=== PATIENT | male | born 2000 | race Caucasian/White ===

== ENCOUNTER 2025-02-15 21:31 | Emergency (ER) | payer OTHER, SELFPAY ==
[2025-02-15 21:37] VITALS: BP 126/80; PULSE 57; TEMP 36.9; O2SAT 98; BMI 23.5
--- OUTSIDE RECORDS SUMMARY | 2025-02-15 21:41 | XMS_ITS | Encounter Summary ---
Author Organization [facility] Sys [facility] Address [id number] [address] [place] [address] Care Team Providers Care Market Risk Manager Name Role Phone David Gomes MD Primary Care Provider [phone] Reason for Visit * Reason Onset Date Comments Video appt request 01/07/2020 Encounter Details Date Type Department Care Team (Late st Contact Info) Description 01/07/[address] [facility] Neurology [address] [place] [address] Rene Ley Video appt request Social History Tobacco Use Types Packs/Day Years Used Date Smoking Tobacco: Never Smokeless Tobacco: Never Alcohol Use Standard Drinks/Week Comments No 0 (1 standard drink = 0.6 oz pur e alcohol) Childcare Answer Date Recorded Childcare Unknown 11/01/2018 Employment Answer Date Recorded Employment Unknown 11/01/2018 Sex and Gender Information Value Date Recorded Sex Assigned at Male 01/07/2020 6:47 PM EDT Legal Sex Male 11:57 AM EDT Gender Identity Male 01/07/2020 6:47 PM EDT Sexual Orientation Straight 01/07/2020 6: 47 PM EDT documented as of this encounter Miscellaneous Notes * Telephone Encounter - Rene Ley - 01/07/2020 2:56 PM EDT Patient requesting 01/09 follow up w/ LIBRA Moreira be switched to video appt. Patient is not comfortable coming into office. My chart active. Please advise appt may be switched to video. * Telephone Encounter - Tiki Carroll RN - 01/07/2020 2:56 PM EDT Okay to switch. Tiki Carroll RN 01/07/20 1519 * Telephone Encounter - Rene Ley - 01/07/2020 2:56 PM EDT Appt switched to video. Patient advised he will be contacted for set up. documented in this encounter Plan of Treatment Upcoming Encounters Date Type Department Care Team (Late st Contact Info) Description 02/28/2025 9:00 AM EDT Office Visit [facility] Neurology, A Department of [address] [place] [phone] Diego Peraza MD [address] [place] [address] [address] [place] [phone] documented as of this encounter Visit Diagnoses Not on filedocumented in this encounter Care Teams Market Risk Manager Relationship Specialty Start Date End Date David Gomes MD [address] [place] [address], [address] [place] [address] PCP - General Pediatrics 04/07/21 documented as of this encounter
--- OUTSIDE RECORDS SUMMARY | 2025-02-15 21:41 | XMS_ITS | Encounter Summary ---
[id number] [address] [place] [address] Care Team Providers Care Medical Photographer Name Role Phone David Gomes MD Primary Care Provider [phone] Reason for Visit * Reason Comments Med Refill Encounter Details Date Type Department Care Team (Late st Contact Info) Description 04/10/2018 Refill [facility] [address] [facility] [address] [place] [phone] Alhaji Yang MD [address] [place] [address], [facility] [address] [place], [place] [id number] Social History Tobacco Use Types Packs/Day Years Used Date Smoking Tobacco: Never Smokeless Tobacco: Never Alcohol Use Standard Drinks/Week Comments No 0 (1 standard drink = 0.6 oz pur e alcohol) Sex and Gender Information Value Date Recorded Sex Assigned at Male 01/07/2020 6:47 PM EDT Legal Sex Male 11:57 AM EDT Gender Identity Male 01/07/2020 6:47 PM EDT Sexual Orientation Straight 01/07/2020 6: 47 PM EDT documented as of this encounter Plan of Treatment Upcoming Encounters Date Type Department Care Team (Late st Contact Info) Description 02/28/2025 9:00 AM EDT Office Visit [facility], A Department of [address] [place] [address] Diego Peraza MD [address] [place] [address], [facility] [address] [place] [address] documented as of this encounter Visit Diagnoses Not on filedocumented in this encounter Care Teams Medical Photographer Relationship Specialty Start Date End Date David Gomes MD [address] [place] [address], [address] [place] [address] PCP - General Pediatrics 04/07/21 documented as of this encounter
--- OUTSIDE RECORDS SUMMARY | 2025-02-15 21:41 | XMS_ITS | Clinical Summary ---
Author Organization [facility] Address [facility] [id number] [address] [place] [address] Care Team Providers Care Lapel Stitcher Name Role Phone David Gomes MD Primary Care Provider [phone] Allergies Active Allergy Reactions Criticality Noted Date Comments Amoxicillin 07/08/2017 Medications levETIRAcetam (KEPPRA) 500 mg tabletIndication s:Seizures, generalized convulsive (CMS-HCC) TAKE 4 TABLET BY MOUTH TWICE DAILY 240 tablet 5 10/01/2024 Active topiramate (TOPAMAX) 100 mg tabletIndication s:Seizures, generalized convulsive (CMS-HCC) Take 1 tablet (100 mg total) by mouth in the morning and 1 tablet (100 mg total) before bedtime. 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 Encounters Date Type Department Care Team Description 01/03/[address] [facility] Neurology, A Department of [facility] [address] [place] [address] [place] [address] Jennifer Jimenez BMV Physician Statement Form 11/21/2024 10:30 AM EDT Office Visit [facility]/Pediatrics [address] [phone] David Gomes MD Tick bite, unspecified site, initial encounter (Primary Dx) 11/20/2024 Travel from Last 3 Months Immunizations Immunization Administration Dates Next Due COVID-19 Vaccine, vector-nr, rS-Ad26, PF, 0.5mL 07/30/2020 Influenza, Injectable, Mdck, Preservative Free, Quad 05/05/2019 Influenza, Injectable, quadrivalent (PF) 021 Meningococcal Conjugate 02/04/2018 Family History Medical History Relation Name Comments No Known Problems Father Bleeding Disorder Maternal cousin Magdalene vWD Menorrhagia Mother Menorrhagia Sister 1 Dionicio Menorrhagia Sister 2 Jelna Relation Name Status Comments Father Alive Maternal cousin Magdalene Alive Mother Alive Sister 1 Dionicio Alive Sister 2 Jelna Alive Social History Tobacco Use Types Packs/Day Years Used Date Smoking Tobacco: Never Smokeless Tobacco: Never Tobacco Cessation:Counseling Given: Not Answered Alcohol Use Standard Drinks/Week Comments No 0 (1 standard drink = 0.6 oz pur e alcohol) Social Connection and Isolation Panel [NHANES] A nswer Date Recorded In a typical week, how many times do you talk on the phone with family, friends, or neighbors? Three times a week 04/08/2021 How often do you get togethe r with friends or relatives? Once a week 04/08/2021 How often do you attend chur ch or caodaism services? Never 04/08/2021 Do you belong to any clubs o r organizations such as hoahaoism groups, unions, fraternal or athletic groups, or school groups? No 04/08/2021 How often do you attend meet ings of the clubs or organizations you belong to? Patient declined 04/08/2021 Are you , , di vorced, , never , or living with a partner? Patient declined 04/08/2021 AUDIT-C Answer Date Recorded Q1: How often do you have a drink containing alc ohol? Never 04/08/2021 Q2: How many drinks containi ng alcohol do you have on a typical day when you are drinking? Patient declined 04/08/2021 Q3: How often do you have si x or more drinks on one occasion? Patient declined 04/08/2021 Overall Financial Resource Strain (CARDIA) Answe r Date Recorded How hard is it for you to pa y for the very basics like food, housing, medical care, and heating? Not hard at all 05/24/2024 PHQ-2 Answer Date Recorded Total Score 0 03/15/2024 [facility] Answer Date Recorded Do you feel stress - tense, restless, nervous, or anxious, or unable to sleep at night because your mind is troubled all the time - these days? Not at all 04/08/2021 Exercise Vital Sign Answer Date Recorde d On average, how many days pe r week do you engage in moderate to strenuous exercise (like a brisk walk)? 0 days 04/08/2021 On average, how many minutes do you engage in exercise at this level? 0 min 04/08/2021 PRAPARE - Transportation Answer Date Re corded In the past 12 months, has l ack of transportation kept you from medical appointments or from getting medications? No 06/2024 In the past 12 months, has l ack of transportation kept you from meetings, work, or from getting things needed for daily living? No 05/24/2024 Housing Instability Answer Date Recorde d Are you worried or concerned that in the next two months you may not have stable housing that you own, rent or stay in as a part of a household? No 05/24/2024 Childcare Answer Date Recorded Do problems getting child ca re make it difficult for you to work or study? No 04/08/2021 Employment Answer Date Recorded Do you need help finding a [employer] [facility] and/or a training program? No 04/08/2021 Hunger Screening Answer Date Recorded Within the past 12 months we worried whether our food would run out before we got money to buy more. Never True 05/24/2024 Within the past 12 months th e food we bought just didn't last and we didn't have money to get more. Never True 05/24/2024 Purpose - Life Answer Date Recorded I have a purpose and direction in my life. Somew hat Disagree 04/08/2021 Education Answer Date Recorded What is the highest level of school you have completed or the highest degree you have received? 12th grade 04/08/2021 Sex and Gender Information Value Date Recorded Sex Assigned at Male 01/07/2020 6:47 PM EDT Legal Sex Male 11:57 AM EDT Gender Identity Male 01/07/2020 6:47 PM EDT Sexual Orientation Straight 01/07/2020 6: 47 PM EDT Last Filed Vital Signs Vital Sign Reading Time Taken Comments Blood Pressure 107/70 11/21/2024 10:21 AM EDT Pulse 70 11/21/2024 10:21 AM EDT Temperature 36.4 C (97.6 F) 04/09/2021 10:29 AM EST Respiratory Rate - - Oxygen Saturation - - Inhaled Oxygen Concentration - - Weight 70.9 kg (156 lb 3.2 oz) 11/21/2024 10:21 AM EDT Height 170.2 cm (5' 7.01 ) 11/21/2024 10:21 AM E DT Body Mass Index 24.46 11/21/2024 10:21 AM EDT Plan of Treatment Upcoming Encounters Date Type Department Care Team (Late st Contact Info) Description 02/28/2025 9:00 AM EDT Office Visit [facility], A Department of [place] [address], [address] [place] [phone] Diego Peraza MD [address] [place] [address] [address] [place] [address] Health Maintenance Due Date Last Done Comments DTaP,Tdap and Td Vaccines (1 - Tdap) 12/31/2018 COVID-19 Vaccine (2 - season) 01/21/202502/2021 Influenza Vaccine 01/21/2025 04/09/2021, 05/05/2019 Depression Screening 03/15/2025 03/15/2024 Adult BMI Screening 11/21/2025 11/21/2024 Tobacco Screening 11/21/2025 11/21/2024 Medical Devices Not on file Insurance [employer] Care Teams Lapel Stitcher Relationship Specialty Start Date End Date David Gomes MD [address] [place] [address], [address] [place] [id number] PCP - General Pediatrics 04/07/21
--- OUTSIDE RECORDS SUMMARY | 2025-02-15 21:41 | XMS_ITS | Encounter Summary ---
Author [facility] Address [facility] [id number] [address] [place] [address] Care Team Providers Care Manager Security Name Role Phone David Gomes MD Primary Care Provider [phone] Reason for Visit * Reason Comments Med Refill Encounter Details Date Type Department Care Team (Late st Contact Info) Description 07/03/2019 Refill [facility] [address] [place] [phone] Alhaji Yang MD [address] [place] [address], [place] [address] [place], [place] [phone] Seizures, generalized convulsive ([facility]) Social History Tobacco Use Types Packs/Day Years [...] encounter Miscellaneous Notes * Telephone Encounter - Breanna Almanza CMA - 07/03/2019 4:56 PM EST Received a call from the patient in regards to his script for Keppra. The patient stated that when he was seen in clinic his Keppra was going to be called in with refills. The patient stated that thescript was not received and is asking if it can be called again with more than 1 refill to [facility] in [place]. Keppra 500 mg 4 tabs BID. Breanna Almanza CMA 07/11/19 1319 * Telephone Encounter - Tiki Carroll RN - 07/03/2019 4:56 PM EST Script defaulted to phone in. Tiki Carroll RN 07/11/19 1409 documented in this encounter Plan of Treatment Upcoming Encounters Date Type Department Care Team (Late st Contact Info) Description 02/28/2025 9:00 AM EDT Office Visit [facility] Neurology, A Department of [address] [place] [phone] Diego Peraza MD [address] [place] [address] 101, [address] [place] [phone] documented as of this encounter Visit Diagnoses Diagnosis Seizures, generalized convulsive ([facility]) documented in this encounter Care Teams Manager Security Relationship Specialty Start Date End Date David Gomes MD [address] [place] [address], [address] [place] [address] PCP - General Pediatrics 04/07/21 documented as of this encounter
--- NOTE | 2025-02-15 21:45 | PC.NURSE ---
no facial droop, speech clean and pt alert and oriented
--- NOTE | 2025-02-15 22:32 | PC.NURSE ---
this patient complains of left side facial numbness onset today around noon while at work. this patient denies any recent falls, injury or trauma to cause this this patient voices no concerns, needs and shows no signs of distress
--- NOTE | 2025-02-15 22:33 | CT_ITS ---
[facility] [place] [id number] Patient Name: ROBERTO GEE MRN: [id number] date: 2000 Sex: M Assigned Patient Location: ER Current Patient Location: ED.MAIN Accession/Order Number: [id number] Exam Date: 02/15/2025 22:45 Report Date: 02/15/2025 23:21 At the request of: YONG NIÑO MD Procedure: CT head/brain wo con CT BRAIN WITHOUT CONTRAST: CLINICAL HISTORY: left facial weakness COMPARISON: None TECHNIQUE: Contiguous axial unenhanced images were obtained through the brain. This CT exam was performed using one or more following dose reduction techniques: Automated exposure control, adjustment of the mA and/or kV according to patient size, or use of iterative reconstruction technique. FINDINGS: There is no evidence of midline shift, intra or extra-axial fluid collection, hemorrhage or CT evidence of acute large vascular distribution stroke. There is evidence of generalized ventriculomegaly. Visualized intraorbital contents appear unremarkable. Visualized paranasal sinuses are clear. The surrounding soft tissues are normal. CT/CT head/brain wo con IMPRESSION: NO ACUTE INTRACRANIAL ABNORMALITY. Impression dictated by: Ever Adhikari M.D. 02/15/2025 11:21 PM Dictation Location: [place] [address] Electronically authenticated by: [id number] Y Date: 02/15/2025 23:21
--- NOTE | 2025-02-15 22:34 | ED_ITS ---
HPI - Neuro Symptoms/Deficit General Chief Complaint: Neuro Symptoms/Deficit Stated Complaint: Left Side of face numbness Time Seen by Provider: 02/15/25 22:20 Source: patient Mode of arrival: walk-in History of Present Illness HPI Narrative: past history of Gonzales's palsy . episode about 5 years ago. today around noon noticed numbness of his face followed by weakness. No other symptoms. no headache, fever or extremity paresthesia Related Data Allergies Allergy/AdvReac Type Severity Reaction Status Date / Time amoxicillin Allergy Severe Unknown Verified 02/15/25 21:42 Review of Systems ROS Status of ROS 10 or more systems reviewed and unremark able except as noted in history and below PFSH PFSH Social History Little interest or pleasure in doing things: not at all Feeling down, depressed, or hopeless: not at all Exam Constitutional Vital Signs, click to edit/add: Last Vital Signs Temp 98.5 F 02/15/25 21:37 Pulse 57 L 02/15/25 21:37 Resp 18 02/15/25 21:37 BP 126/80 02/15/25 21:37 Pulse Ox 98 02/15/25 21:37 O2 Del Method Room Air 02/15/25 21:37 Common normals: no apparent distress, average body habitus, oriented x3, no limitations, healthy appearing, alert and well nourished [facility] Common normals: normocephalic and head/scalp atraumatic Eye Common normals: PERRL, EOMs intact bilaterally and conjunctivae normal Respiratory Common normals: normal respiratory effort, no retractions, no use of accessory muscles and clear to auscultation bilaterally Cardio Common normals: regular rate, regular rhythm, S1 normal heart sound and S2 norm al heart sound GI Common normals: Normal to inspection, nondistended, normoactive bowel sounds present, soft to palpation and non-tender Extremity Common normals: normal to inspection Neuro Common normals: oriented x3 and moves all extremities Other: left facial musculature weak compared to the right. delay in closure left eye Psych Appearance: grossly normal Course Vital Signs Vital signs: Vital Signs Temperature 98.5 F 02/15/25 21:37 Pulse Rate 57 L 02/15/25 21:37 Respiratory Rate 18 02/15/25 21:37 Blood Pressure 126/80 02/15/25 21:37 Pulse Oximetry 98 02/15/25 21:37 Oxygen Delivery Method Room Air 02/15/25 21:37 Temperature 98.5 F 02/15/25 21:37 Pulse Rate 57 L 02/15/25 21:37 Respiratory Rate 18 02/15/25 21:37 Blood Pressure 126/80 02/15/25 21:37 Pulse Oximetry 98 02/15/25 21:37 Oxygen Delivery Method Room Air 02/15/25 21:37 MDM - Neuro Symptoms/Deficit MDM Narrative Medical decision making narrative: past history of gonzales's palsy about 5 years ago. Presents with left facial weakness that started around noon. No other neuro findings. CT brain neg and labs WNL. Patient advised of the diagnosis of Gonzales's palsy. given acyclovir and prednisone and discharged home Lab Data Labs: Lab Results 02/15/25 Range/Units 22:43 WBC 10.4 (4.0-11.0) 10^3/uL RBC 4.60 L (4.70-6.10) 10^6/uL Hgb 14.2 (14.0-18.0) g/dL Hct 42.1 (42.0-54.0) % MCV 91.5 (80.0-94.0) fL MCH 30.9 (25.9-34.0) pg MCHC 33.7 (29.9-35.2) g/dL RDW 12.0 (11.0-15.0) % Plt Count 247 (150-450) 10^3/uL MPV 9.9 (9.5-13.5) fL Neut % (Auto) 51.9 (43.0-75.0) % Lymph % (Auto) 37.7 (20.5-60.0) % [place] % (Auto) 5.4 (1.7-12.0) % Eos % (Auto) 4.1 (0.9-7.0) % Baso % (Auto) 0.6 (0.2-2.0) % Neut # (Auto) 5.4 (1.4-6.5) 10^3/uL Lymph # (Auto) 3.9 H (1.2-3.8) 10^3/uL [place] # (Auto) 0.6 (0.3-0.8) 10^3/uL Eos # (Auto) 0.4 (0.0-0.7) 10^3/uL Baso # (Auto) 0.1 (0.0-0.1) 10^3/uL Abs Immat Gran (auto) 0.03 (0.00-0.03) 10^3/uL Imm/Tot Granulo (auto) 0.3 (0.0-0.5) % Sodium 139 (136-145) mmol/L Potassium 3.6 (3.5-5.1) mmol/L Chloride 106 (98-107) mmol/L Carbon Dioxide 26.5 (21.0-32.0) mmol/L Anion Gap 10.1 BUN 14.0 (7.0-18.0) mg/dL Creatinine 0.97 (0.70-1.30) mg/dL Est GFR ( Amer) >60 (>=60 mL/min/1.73m^2) Est GFR (Non-Af Amer) >60 (>=60 mL/min/1.73m^2) BUN/Creatinine Ratio 14.4 Glucose 93 (74-106) mg/dL Calcium 8.4 L (8.5-10.1) mg/dL Discharge Plan Discharge Chief Complaint: Neuro Symptoms/Deficit Clinical Impression: Gonzales's palsy Patient Disposition: Home, Self-Care Print Language: Botswanan Instructions: Gonzales Palsy (ED) Additional Instructions: follow up with your doctor next week Referrals: Physician,Non-Staff, MD [Primary Care Provider] - 1 week
[2025-02-15 22:49] LABS: Hematocrit 42.1 % (42.0-54.0); Hemoglobin 14.2 g/dL (14.0-18.0); Immature Granulocytes Abs Auto 0.03 10^3/uL (0.00-0.03); Immature Granulocytes Pct Auto 0.3 % (0.0-0.5); Lymphocytes Absolute Auto 3.9 10^3/uL (1.2-3.8); Mean Corpuscular HGB Conc 33.7 g/dL (29.9-35.2); Mean Corpuscular Hemoglobin 30.9 pg (25.9-34.0); Mean Corpuscular Volume 91.5 fL (80.0-94.0); Platelet Count 247 10^3/uL (150-450); Red Blood Count 4.60 10^6/uL (4.70-6.10); White Blood Count 10.4 10^3/uL (4.0-11.0)
[2025-02-15] MEDS: PREDNISONE 20 MG TABLET 60 MG PO (22:51)
[2025-02-15] MEDS: ACYCLOVIR 200 MG CAPSULE 400 MG PO (22:51)
[2025-02-15 22:56] LABS: Anion Gap 10.1; Blood Urea Nitrogen 14.0 mg/dL (7.0-18.0); Calcium 8.4 mg/dL (8.5-10.1); Carbon Dioxide 26.5 mmol/L (21.0-32.0); Chloride 106 mmol/L (98-107); Estimated GFR (African America >60 (>=60 mL/min/1.73m^2); Estimated GFR (Non-African Ame >60 (>=60 mL/min/1.73m^2); Glucose 93 mg/dL (74-106); Potassium 3.6 mmol/L (3.5-5.1); Sodium 139 mmol/L (136-145)
[2025-02-16 00:06] VITALS: BP 116/72; PULSE 60; TEMP 36.9; O2SAT 100
--- NOTE | 2025-02-16 00:10 | PC.NURSE ---
i gave this patient verbal and written discharge orders along with 2 Rx and this patient voices yes to understanding these . at time of discharge this patient voices no concerns,needs and shows no signs of distress
== END 2025-02-16 00:09 | disposition home or self-care (01) ==
PROVIDERS: Emergency Provider Internal Medicine
DX: G51.0 Bell's palsy (principal)
CPT/HCPCS: 36415; 70450; 80048; 85025; 99285; J7512